=== PATIENT | female | born 1945 | race Caucasian/White ===

== ENCOUNTER → 2017-03-07 | Outpatient (REF) | payer BC, MEDICARE | LOC: M LAB REF 13:13 | PROVIDERS: ATTEND Nurse Practitioner Women's Health | DX: J44.9 Chronic obstructive pulmonary disease, unspecified (principal) ==

== ENCOUNTER 2018-04-16 22:09 | Inpatient (IN) | payer MEDICARE, BC ==
[2018-04-16] MEDS: HumaLOG INSULIN (NovoLOG) PER UNIT SC (01:59)
[2018-04-16] MEDS ORDERED: GLUCOSE 4 GM CHEW TABLET PO (23:45)
[2018-04-16 23:50] LABS: BEDSIDE GLUCOSE 66 MG/DL (83-110)
[2018-04-17 01:07] LABS: BEDSIDE GLUCOSE 157 MG/DL (83-110)
[2018-04-17 01:19] LABS: KETONE, URINE AUTO RFX NEGATIVE (NEGATIVE); NITRITE, URINE AUTO RFX NEGATIVE (NEGATIVE); RBC, URINE AUTO RFX 1 /HPF (0-3); SPECIFIC GRAVITY UR AUTO RFX 1.008 (1.002-1.035); SQUAM EPITHELIAL CELL UR AURFX 0 /HPF (0-6)
[2018-04-17 01:20] LABS: LEUKOCYTE ESTERASE UR AUTO RFX 2+ (NEGATIVE); WBC, URINE AUTO RFX 23 /HPF (0-3)
[2018-04-17] MEDS ORDERED: BISACODYL 10 MG SUPP PR (01:30)
[2018-04-17] MEDS ORDERED: MOM 30ML SUSPENSION UDC PO (01:30)
[2018-04-17] MEDS: NS 1,000 ML IV ×2 (01:58→16:55)
[2018-04-17] MEDS: IPRATROPIUM 0.5MG/ALBUTEROL 2.5MG INH SOL UD 3ML (DUONEB)(J7620) NEB ×5 (02:10→21:46)
[2018-04-17] MEDS: HEPARIN SOD (PORCINE) 5000 UNITS/ML VIAL SQ ×3 (05:32→21:36)
[2018-04-17] MEDS: LEVOTHYROXINE 50MCG TABLET (0.05MG) PO (05:32)
[2018-04-17 06:20] LABS: HEMATOCRIT 30.6 % (36.0-47.0); HEMOGLOBIN 9.6 g/dl (12.0-15.5); MEAN CORPUSCULAR HGB CONC 31.4 g/dl (32.0-36.5); MEAN CORPUSCULAR VOLUME 92.4 fl (80.0-96.0); PLATELET COUNT, AUTOMATED 158 10^3/uL (150-450); RED BLOOD COUNT 3.31 10^6/uL (4.00-5.40); WHITE BLOOD COUNT 10.2 10^3/uL (4.0-10.0)
[2018-04-17 06:57] LABS: BEDSIDE GLUCOSE 90 MG/DL (83-110)
[2018-04-17] MEDS: HumaLOG INSULIN (NovoLOG) PER UNIT SC ×4 (07:19→20:37)
[2018-04-17 07:23] LABS: ANION GAP 7 MEQ/L (8-16); BLOOD UREA NITROGEN 80 MG/DL (7-18); CALCIUM LEVEL 8.7 MG/DL (8.8-10.2); CARBON DIOXIDE LEVEL 33 MEQ/L (21-32); CHLORIDE LEVEL 100 MEQ/L (98-107); GLOMERULAR FILTRATION RATE 27.7 (>39); GLUCOSE, FASTING 98 MG/DL (70-100); POTASSIUM SERUM 4.5 MEQ/L (3.5-5.1); SODIUM LEVEL 140 MEQ/L (136-145)
[2018-04-17] MEDS: METOPROLOL TART 50 MG TAB PO ×2 (08:13→21:37)
[2018-04-17] MEDS: MULTIVITAMINS/MINERALS THERAP 1 TAB PO (08:13)
[2018-04-17] MEDS: SENOKOT S TAB PO ×2 (08:13→21:36)
[2018-04-17] MEDS: PANTOPRAZOLE 40MG TAB (PROTONIX) PO (08:14)
[2018-04-17] MEDS: ASCORBIC ACID 500 MG TAB PO ×3 (08:14→21:36)
[2018-04-17] MEDS: FERROUS GLUCONATE 324 MG TAB PO ×2 (08:14→21:36)
[2018-04-17] MEDS: GABAPENTIN 300 MG CAP PO (08:14)
[2018-04-17] MEDS: DOCUSATE SODIUM 100 MG CAP PO ×2 (08:14→21:36)
[2018-04-17 11:41] LABS: BEDSIDE GLUCOSE 85 MG/DL (83-110)
[2018-04-17 16:55] LABS: BEDSIDE GLUCOSE 155 MG/DL (83-110)
[2018-04-17] MEDS ORDERED: GLUCAGON FOR INJ 1 MG VIAL (J1610) SC (19:15)
[2018-04-17] MEDS ORDERED: DEXTROSE 50% 50 ML SYRINGE IV (19:15)
[2018-04-17 20:28] LABS: BEDSIDE GLUCOSE 140 MG/DL (83-110)
[2018-04-17] MEDS: MONTELUKAST 10 MG TAB PO (21:36)
[2018-04-18] MEDS: HEPARIN SOD (PORCINE) 5000 UNITS/ML VIAL SQ ×3 (05:40→21:12)
[2018-04-18] MEDS: LEVOTHYROXINE 50MCG TABLET (0.05MG) PO (05:40)
[2018-04-18 06:43] LABS: HEMATOCRIT 29.4 % (36.0-47.0); HEMOGLOBIN 9.3 g/dl (12.0-15.5); MEAN CORPUSCULAR HEMOGLOBIN 29.4 pg (27.0-33.0); MEAN CORPUSCULAR HGB CONC 31.6 g/dl (32.0-36.5); PLATELET COUNT, AUTOMATED 142 10^3/uL (150-450); RED BLOOD COUNT 3.16 10^6/uL (4.00-5.40); RED CELL DISTRIBUTION WIDTH 15.7 % (11.5-14.5); WHITE BLOOD COUNT 8.4 10^3/uL (4.0-10.0)
[2018-04-18 07:05] LABS: FERRITIN 36 NG/ML (8-252); IRON (FE) 48 UG/DL (50-170); PERCENT SATURATION 15.5 % (13.2-45.0); TOTAL IRON BINDING CAPACITY 309 UG/DL (250-450)
[2018-04-18 07:07] LABS: ALBUMIN/GLOBULIN RATIO 0.65 (1.00-1.93); ALKALINE PHOSPHATASE 79 U/L (45-117); ALT/SGPT 18 U/L (12-78); ANION GAP 4 MEQ/L (8-16); AST/SGOT 16 U/L (7-37); BILIRUBIN,DIRECT < 0.1 MG/DL (0.0-0.2); BILIRUBIN,TOTAL 0.3 MG/DL (0.2-1.0); BLOOD UREA NITROGEN 60 MG/DL (7-18); CALCIUM LEVEL 8.6 MG/DL (8.8-10.2); CARBON DIOXIDE LEVEL 33 MEQ/L (21-32); CHLORIDE LEVEL 106 MEQ/L (98-107); CREATININE FOR GFR 1.71 MG/DL (0.55-1.30); GLOMERULAR FILTRATION RATE 31.3 (>39); GLUCOSE, FASTING 123 MG/DL (70-100); MAGNESIUM LEVEL 2.6 MG/DL (1.8-2.4); POTASSIUM SERUM 4.7 MEQ/L (3.5-5.1); SODIUM LEVEL 143 MEQ/L (136-145); TOTAL PROTEIN 7.6 GM/DL (6.4-8.2)
[2018-04-18] MEDS: IPRATROPIUM 0.5MG/ALBUTEROL 2.5MG INH SOL UD 3ML (DUONEB)(J7620) NEB ×3 (07:20→19:41)
[2018-04-18] MEDS: GABAPENTIN 300 MG CAP PO (08:09)
[2018-04-18] MEDS: DOCUSATE SODIUM 100 MG CAP PO ×2 (08:09→20:51)
[2018-04-18] MEDS: MULTIVITAMINS/MINERALS THERAP 1 TAB PO (08:09)
[2018-04-18] MEDS: SENOKOT S TAB PO ×2 (08:09→20:51)
[2018-04-18] MEDS: PANTOPRAZOLE 40MG TAB (PROTONIX) PO (08:09)
[2018-04-18] MEDS: amLODIPine 10 MG TAB PO (08:09)
[2018-04-18] MEDS: FERROUS GLUCONATE 324 MG TAB PO ×2 (08:09→20:51)
[2018-04-18] MEDS: METOPROLOL TART 50 MG TAB PO ×2 (08:10→20:51)
[2018-04-18] MEDS: HumaLOG INSULIN (NovoLOG) PER UNIT SC ×4 (08:11→20:51)
[2018-04-18] MEDS: ASCORBIC ACID 500 MG TAB PO (08:11)
[2018-04-18 11:23] LABS: BEDSIDE GLUCOSE 158 MG/DL (83-110)
[2018-04-18 16:43] LABS: BEDSIDE GLUCOSE 167 MG/DL (83-110)
[2018-04-18 20:51] LABS: BEDSIDE GLUCOSE 228 MG/DL (83-110)
[2018-04-18] MEDS: MONTELUKAST 10 MG TAB PO (20:51)
[2018-04-19] MEDS: ACETAMINOPHEN TAB 650MG DOSE (2X325MG) PO ×2 (03:19→21:06)
[2018-04-19] MEDS: HEPARIN SOD (PORCINE) 5000 UNITS/ML VIAL SQ ×3 (05:31→21:05)
[2018-04-19] MEDS: LEVOTHYROXINE 50MCG TABLET (0.05MG) PO (05:31)
[2018-04-19 05:53] LABS: HEMATOCRIT 28.1 % (36.0-47.0); HEMOGLOBIN 8.9 g/dl (12.0-15.5); MEAN CORPUSCULAR HEMOGLOBIN 29.6 pg (27.0-33.0); MEAN CORPUSCULAR HGB CONC 31.7 g/dl (32.0-36.5); MEAN CORPUSCULAR VOLUME 93.4 fl (80.0-96.0); PLATELET COUNT, AUTOMATED 145 10^3/uL (150-450); RED BLOOD COUNT 3.01 10^6/uL (4.00-5.40); RED CELL DISTRIBUTION WIDTH 15.6 % (11.5-14.5); WHITE BLOOD COUNT 7.7 10^3/uL (4.0-10.0)
[2018-04-19 06:10] LABS: ANION GAP 5 MEQ/L (8-16); BLOOD UREA NITROGEN 45 MG/DL (7-18); CALCIUM LEVEL 8.9 MG/DL (8.8-10.2); CARBON DIOXIDE LEVEL 31 MEQ/L (21-32); CHLORIDE LEVEL 105 MEQ/L (98-107); CREATININE FOR GFR 1.56 MG/DL (0.55-1.30); GLOMERULAR FILTRATION RATE 34.8 (>39); GLUCOSE, FASTING 167 MG/DL (70-100); MAGNESIUM LEVEL 2.4 MG/DL (1.8-2.4); POTASSIUM SERUM 5.1 MEQ/L (3.5-5.1); SODIUM LEVEL 141 MEQ/L (136-145)
[2018-04-19] MEDS: IPRATROPIUM 0.5MG/ALBUTEROL 2.5MG INH SOL UD 3ML (DUONEB)(J7620) NEB ×3 (07:06→19:36)
[2018-04-19] MEDS: ASCORBIC ACID 500 MG TAB PO (08:18)
[2018-04-19] MEDS: SENOKOT S TAB PO ×2 (08:18→21:04)
[2018-04-19] MEDS: FERROUS GLUCONATE 324 MG TAB PO ×2 (08:18→21:04)
[2018-04-19] MEDS: GABAPENTIN 300 MG CAP PO (08:18)
[2018-04-19] MEDS: DOCUSATE SODIUM 100 MG CAP PO ×2 (08:18→21:04)
[2018-04-19] MEDS: PANTOPRAZOLE 40MG TAB (PROTONIX) PO (08:18)
[2018-04-19] MEDS: amLODIPine 10 MG TAB PO (08:19)
[2018-04-19] MEDS: METOPROLOL TART 50 MG TAB PO ×2 (08:19→21:05)
[2018-04-19] MEDS: MULTIVITAMINS/MINERALS THERAP 1 TAB PO (08:19)
[2018-04-19] MEDS: HumaLOG INSULIN (NovoLOG) PER UNIT SC ×4 (08:23→20:57)
[2018-04-19] MEDS ORDERED: IRON SUCROSE 100MG 5ML VIAL (J1756 PER 1MG) IV (10:45)
[2018-04-19 11:45] LABS: BEDSIDE GLUCOSE 167 MG/DL (83-110)
[2018-04-19] MEDS: IRON SUCROSE 25 MG in NS 50 ML IV (14:32)
[2018-04-19] MEDS: IRON SUCROSE 475 MG in NS 250 ML IV (15:29)
[2018-04-19] MEDS ORDERED: FUROSEMIDE 40 MG TAB PO (16:00)
[2018-04-19 16:45] LABS: BEDSIDE GLUCOSE 144 MG/DL (83-110)
[2018-04-19] MEDS: BUDESONIDE 180MCG INHALER (PULMICORT FLEXHALER) INH (19:36)
[2018-04-19] MEDS: FLUTICASONE HFA 220 MCG 12 GM INHALER (FLOVENT) INH (19:37)
[2018-04-19 20:41] LABS: BEDSIDE GLUCOSE 208 MG/DL (83-110)
[2018-04-19] MEDS: MONTELUKAST 10 MG TAB PO (21:04)
[2018-04-19] MEDS: CEPACOL LOZENGE PO (21:06)
[2018-04-20] MEDS: IPRATROPIUM 0.5MG/ALBUTEROL 2.5MG INH SOL UD 3ML (DUONEB)(J7620) NEB ×5 (01:10→22:46)
[2018-04-20] MEDS: CEPACOL LOZENGE PO ×2 (02:20→15:18)
[2018-04-20] MEDS: LEVOTHYROXINE 50MCG TABLET (0.05MG) PO (05:38)
[2018-04-20] MEDS: HEPARIN SOD (PORCINE) 5000 UNITS/ML VIAL SQ ×3 (05:38→21:55)
[2018-04-20 06:04] LABS: ANION GAP 6 MEQ/L (8-16); BLOOD UREA NITROGEN 34 MG/DL (7-18); CALCIUM LEVEL 8.7 MG/DL (8.8-10.2); CARBON DIOXIDE LEVEL 30 MEQ/L (21-32); CHLORIDE LEVEL 106 MEQ/L (98-107); CREATININE FOR GFR 1.44 MG/DL (0.55-1.30); GLOMERULAR FILTRATION RATE 38.2 (>39); GLUCOSE, FASTING 174 MG/DL (70-100); MAGNESIUM LEVEL 2.2 MG/DL (1.8-2.4); SODIUM LEVEL 142 MEQ/L (136-145)
[2018-04-20] MEDS: BUDESONIDE 180MCG INHALER (PULMICORT FLEXHALER) INH ×2 (07:17→20:01)
[2018-04-20] MEDS: FLUTICASONE HFA 220 MCG 12 GM INHALER (FLOVENT) INH ×2 (07:17→20:01)
[2018-04-20] MEDS: HumaLOG INSULIN (NovoLOG) PER UNIT SC ×4 (08:04→21:00)
[2018-04-20] MEDS: METOPROLOL TART 50 MG TAB PO ×2 (08:04→20:48)
[2018-04-20] MEDS: PANTOPRAZOLE 40MG TAB (PROTONIX) PO (08:04)
[2018-04-20] MEDS: GABAPENTIN 300 MG CAP PO (08:04)
[2018-04-20] MEDS: ASCORBIC ACID 500 MG TAB PO (08:04)
[2018-04-20] MEDS: MULTIVITAMINS/MINERALS THERAP 1 TAB PO (08:04)
[2018-04-20] MEDS: DOCUSATE SODIUM 100 MG CAP PO ×2 (08:04→20:47)
[2018-04-20] MEDS: SENOKOT S TAB PO ×2 (08:04→20:48)
[2018-04-20] MEDS: amLODIPine 10 MG TAB PO (08:05)
[2018-04-20] MEDS: FUROSEMIDE 40 MG TAB PO (08:05)
[2018-04-20] MEDS: FERROUS GLUCONATE 324 MG TAB PO ×2 (08:05→20:48)
[2018-04-20 12:05] LABS: BEDSIDE GLUCOSE 121 MG/DL (83-110)
[2018-04-20] MEDS: DOXYCYCLINE HYCLATE 100 MG TAB PO ×2 (12:51→20:47)
[2018-04-20] MEDS: ACETAMINOPHEN TAB 650MG DOSE (2X325MG) PO (12:52)
[2018-04-20] MEDS: traMADol 50 MG TAB PO ×2 (15:12→21:56)
[2018-04-20 17:19] LABS: BEDSIDE GLUCOSE 104 MG/DL (83-110)
[2018-04-20 20:28] LABS: BEDSIDE GLUCOSE 197 MG/DL (83-110)
[2018-04-20] MEDS: MONTELUKAST 10 MG TAB PO (20:48)
[2018-04-21] MEDS: HEPARIN SOD (PORCINE) 5000 UNITS/ML VIAL SQ (05:44)
[2018-04-21] MEDS: LEVOTHYROXINE 50MCG TABLET (0.05MG) PO (05:44)
[2018-04-21 06:18] LABS: ANION GAP 6 MEQ/L (8-16); BLOOD UREA NITROGEN 30 MG/DL (7-18); CARBON DIOXIDE LEVEL 30 MEQ/L (21-32); CHLORIDE LEVEL 103 MEQ/L (98-107); CREATININE FOR GFR 1.47 MG/DL (0.55-1.30); GLOMERULAR FILTRATION RATE 37.3 (>39); GLUCOSE, FASTING 130 MG/DL (70-100); MAGNESIUM LEVEL 1.8 MG/DL (1.8-2.4); POTASSIUM SERUM 4.7 MEQ/L (3.5-5.1); SODIUM LEVEL 139 MEQ/L (136-145)
[2018-04-21] MEDS: BUDESONIDE 180MCG INHALER (PULMICORT FLEXHALER) INH (06:59)
[2018-04-21] MEDS: IPRATROPIUM 0.5MG/ALBUTEROL 2.5MG INH SOL UD 3ML (DUONEB)(J7620) NEB ×2 (07:00→11:05)
[2018-04-21] MEDS: FLUTICASONE HFA 220 MCG 12 GM INHALER (FLOVENT) INH (07:00)
[2018-04-21] MEDS: HumaLOG INSULIN (NovoLOG) PER UNIT SC (08:18)
[2018-04-21] MEDS: METOPROLOL TART 50 MG TAB PO (08:19)
[2018-04-21] MEDS: GABAPENTIN 300 MG CAP PO (08:19)
[2018-04-21] MEDS: DOCUSATE SODIUM 100 MG CAP PO (08:19)
[2018-04-21] MEDS: SENOKOT S TAB PO (08:19)
[2018-04-21] MEDS: FERROUS GLUCONATE 324 MG TAB PO (08:19)
[2018-04-21] MEDS: PANTOPRAZOLE 40MG TAB (PROTONIX) PO (08:19)
[2018-04-21] MEDS: DOXYCYCLINE HYCLATE 100 MG TAB PO (08:19)
[2018-04-21] MEDS: MULTIVITAMINS/MINERALS THERAP 1 TAB PO (08:19)
[2018-04-21] MEDS: FUROSEMIDE 40 MG TAB PO (08:20)
[2018-04-21] MEDS: ASCORBIC ACID 500 MG TAB PO (08:20)
[2018-04-21] MEDS: amLODIPine 10 MG TAB PO (08:20)
[2018-04-21 11:44] LABS: BEDSIDE GLUCOSE 177 MG/DL (83-110)
[2018-04-22] MEDS ORDERED: FUROSEMIDE 40 MG TAB PO (09:00)
== END 2018-04-21 12:02 | DRG 683 ==
LOC: M MSPAV 22:09
PROVIDERS: Hospitalist
DX: N17.9 Acute kidney failure, unspecified (principal); J44.0 Chronic obstructive pulmonary disease with (acute) lower respiratory infection; J96.10 Chronic respiratory failure, unspecified whether with hypoxia or hypercapnia; I12.9 Hypertensive chronic kidney disease with stage 1 through stage 4 chronic kidney disease, or unspecified chronic kidney disease; E11.9 Type 2 diabetes mellitus without complications; N18.3 Chronic kidney disease, stage 3 (moderate); J20.9 Acute bronchitis, unspecified; Z79.899 Other long term (current) drug therapy; Z79.4 Long term (current) use of insulin; Z88.2 Allergy status to sulfonamides; Z88.8 Allergy status to other drugs, medicaments and biological substances; Z91.040 Latex allergy status; E78.5 Hyperlipidemia, unspecified; K21.9 Gastro-esophageal reflux disease without esophagitis; D63.1 Anemia in chronic kidney disease; E87.5 Hyperkalemia